=== PATIENT | male | born 1955 | race Caucasian/White ===

== ENCOUNTER 2019-11-14 13:43 | Emergency (ER) | payer BC, MEDICARE, SELFPAY ==
--- NOTE | ~2019-11-14 | CT_ITS ---
EXAMINATION: CT brain wo con DATE: 11/14/2019 15:20 INDICATION: Status post fall from ladder. TECHNIQUE: Computed tomography (CT) of the head was performed without intravenous contrast. The dose- length product was 605.33 mGy-cm. The mA was adjusted according to patient size. Iterative reconstruc tion technique was employed. COMPARISON: None FINDINGS: No acute intracranial hemorrhage, infarction, mass or mass effect. No ventriculomegaly or m idline shift. Basilar cisterns are patent. There is intracranial atherosclerosis. Mild generalized at rophy. There is mucosal thickening of the ethmoid and sphenoid sinuses. Mastoids are pneumatized. No depressed skull fractures. IMPRESSION: 1. No acute intracranial abnormality. 2: Mild sinusitis. Reviewed, dictated and finalized at location A.
--- NOTE | ~2019-11-14 | CT_ITS ---
EXAMINATION: CT abdomen pelvis w con EXAM DATE: 11/14/2019 15:20 INDICATION: Fall from ladder with subsequent flank, back pain. TECHNIQUE: Spiral CT of the abdomen and pelvis was performed following intravenous injection of 100 m L Omnipaque 350. Axial, coronal and sagittal images were reviewed. The dose-length product (DLP) fo r this examination was 730.62 mGy-cm. The exposure was tailored according to patient size (auto mA e xposure control), and iterative reconstruction (ASIR) was used as additional dose reduction technique . There is no prior study for comparison. FINDINGS: There is no solid organ injury. The liver, spleen, adrenal glands and pancreas are unremar kable. Gallbladder is unremarkable. No biliary obstruction. Portal and splenic veins are patent. Kidneys enhance symmetrically. There is no hydronephrosis. The prostate is unremarkable. The blad lon is unremarkable. There is no retroperitoneal or pelvic lymphadenopathy. There is mild scattere d arteriosclerotic disease. The appendix is normal. The stomach and small bowel are unremarkable. There is expected amount of c olonic stool. There is moderate sigmoid predominant colonic diverticulosis. No free intraperitoneal g as. Borderline cardiomegaly. The lung bases are unremarkable. There is acute left 11th and 12th r ib fractures posteriorly. The 9th and 10th ribs were also imaged posteriorly and are intact. Pelvis, vertebral bodies are intact. There is total right hip arthroplasty. IMPRESSION: 1. Acute left 11th and 12th rib fractures posteriorly. 2. Colonic diverticulosis. 3. No acute intra-abdominal findings. Reviewed, dictated and finalized at location A.
[2019-11-14 13:47] VITALS: BP 145/88; PULSE 78; RESP 20; TEMP 36.7; O2SAT 98
--- NOTE | 2019-11-14 13:55 | ED.FALL ---
HPI - Fall General Chief Complaint: Fall Stated Complaint: 12FOOT FALL OFF LADDER L ARM INJURY Time Seen by Provider: 11/14/19 13:47 Source: patient Mode of arrival: ambulatory Limitations: no limitations History of Present Illness HPI Narrative: Patient is a 64-year-old male who presented to the emergency department after a fall from a ladder. Patient was apparently cleaning out his gutters, when he slipped and fell backwards off a ladder, landing on a picnic table. Patient reports left arm pain and a large laceration to the left arm. Patient denies head trauma or loss of consciousness, but states he is not entirely sure if he hit his head. Patient has been ambulatory without vision changes, nausea or vomiting. Patient denies neck pain or lower back pain. No numbness or paresthesias. No saddle anesthesia, urinary incontinence, no seizure-like activity. No chest pain, lightheadedness or dizziness prior to the fall. Patient takes a daily aspirin otherwise no anticoagulation. Pt has been ambulatory. Related Data Home Medications Medication Instructions Recorded Confirmed aspirin [Aspirin Childrens] 81 mg PO DAILY 05/03/19 05/03/19 meloxicam 15 mg PO DAILY 05/03/19 05/03/19 propranolol 80 mg PO Q12H 05/03/19 05/03/19 simvastatin 20 mg PO DAILY 05/03/19 05/03/19 tamsulosin 0.4 mg PO DAILY 05/03/19 05/03/19 Allergies Allergy/AdvReac Type Severity Reaction Status Date / Time Penicillins Allergy Unknown Unknown Verified 11/14/19 13:56 Review of Systems Review of Systems: Narrative: CONSTITUTIONAL: Denies fever, chills, or sweats. EYES: Denies visual changes, redness, or discharge. ENT: Denies rhinorrhea, congestion, sore throat, or otalgia. CARDIOVASCULAR: Denies chest pain, palpitations, or edema. RESPIRATORY: Denies cough or dyspnea. GASTROINTESTINAL: Denies abdominal pain, nausea, vomiting, or diarrhea. GENITOURINARY: Denies dysuria or hematuria. SKIN: Denies rash or itching. Reports left arm laceration. MUSCULOSKELETAL: Denies back pain, joint pain, or myalgia. NEUROLOGIC: Denies headache, numbness, or weakness. [facility] Past Medical History Medical History BPH (benign prostatic hyperplasia) Essential tremor Hypercholesterolemia Hypertension Surgical History Surgical History History of right hip replacement Family History Family History Other Family history of arthritis Family history of cardiovascular disease Hypertension Social History Social History Alcohol intake: current Exam Narrative: Exam Narrative: Nursing note and vitals reviewed. CONSTITUTIONAL: The patient appears well-developed and well-nourished. No distress. HEAD: Normocephalic and atraumatic. EYES: 2+ PERRL, EOMI, normal conjunctiva, anicteric EARS: External ears clear bilaterally, no hemotympanum MOUTH: OP clear, no erythema, exudates NECK: midline trachea, supple, FROM. No midline cervical spinal tenderness. CARDIOVASCULAR: Normal rate, regular rhythm, normal heart sounds and intact distal pulses. No murmurs, rubs, gallops. PULMONARY: Effort normal and breath sounds normal. No respiratory distress. The patient has no wheezes, rales, ronchi. No chest wall tenderness, crepitus or ecchymoses. ABDOMINAL: Soft. Nontender, nondistended. No palpable masses Thorax: No midline thoracic or lumbar tenderness. Left posterior chest tenderness without crepitus. EXTREMITIES:: moving all extremities symmetrically. -RUE: No deformity. Normal ROM at shoulder, elbow, wrist, and hand. Sensation intact M/U/R. Pulse 2+. -LUE: No deformity. Normal ROM at shoulder, elbow, wrist, and hand. Pt with large flap laceration appx 4 cm x 4 cm to left medial upper extremity. No active bleeding. Sensation intact M/U/R. Pulse 2+ -RLE: No deformity. Nor
[2019-11-14] MEDS: LIDO 1%/EPINEPHRINE 1:100,000 20 ML VIAL 10 ML INFILTRATE (14:12)
[2019-11-14 15:17] LABS: Estimated Glomerular Filt Rate > 60
[2019-11-14 16:56] VITALS: BP 140/77; PULSE 80; RESP 20; TEMP 36.7; O2SAT 99
== END 2019-11-14 16:58 | disposition home or self-care (01) ==
PROVIDERS: Emergency Provider Emergency Medicine; PCP Family Medicine Adolescent Medicine
DX: S41.112A Laceration without foreign body of left upper arm, initial encounter (principal); S22.42XA Multiple fractures of ribs, left side, initial encounter for closed fracture; Z79.82 Long term (current) use of aspirin; N40.0 Benign prostatic hyperplasia without lower urinary tract symptoms; E78.00 Pure hypercholesterolemia, unspecified; I10 Essential (primary) hypertension; Z96.641 Presence of right artificial hip joint; J32.9 Chronic sinusitis, unspecified; K57.90 Diverticulosis of intestine, part unspecified, without perforation or abscess without bleeding; W11.XXXA Fall on and from ladder, initial encounter
CPT/HCPCS: 12004; 36415; 70450; 74177; 99284; L0140; Q9967

== ENCOUNTER → 2021-01-01 11:13 | Outpatient (CLI) | payer BC, MEDICARE, SELFPAY ==
--- NOTE | ~2021-01-01 | XR_ITS ---
XR cervical spine 4-5V DATE: 01/01/2021 11:36 INDICATION: Persistent bilateral neck pain TECHNIQUE: Open-mouth, odontoid, AP, lateral standing views COMPARISON: None FINDINGS: There is straightening of the cervical spine. C1 and C2 are normally aligned and the odontoid process is intact. No fracture or dislocation or lock ed facet or prevertebral soft tissue swelling. There is degenerative spurring throughout the cervical spine. There is moderate loss of interspace he ight at C4-5 and moderately severe loss of interspace height at C6-7. Uncovertebral joint spurring is noted in the mid and lower cervical spine. There is degenerative montano ge at the apophyseal joints of the cervical spine. IMPRESSION: Straightening Cervical spondylosis, most pronounced at C4-5 and C6-7 Reviewed, dictated and finalized at location A.
== END ==
PROVIDERS: PCP Family Medicine Adolescent Medicine; Visit Provider Family Medicine Adolescent Medicine
DX: M47.892 Other spondylosis, cervical region (principal)
CPT/HCPCS: 72050

== ENCOUNTER → 2021-06-03 07:01 | Outpatient (CLI) | payer BC, MEDICARE, SELFPAY ==
--- NOTE | ~2021-06-03 | XR_ITS ---
EXAMINATION: XR knee LT min 4V DATE: 06/03/2021 08:01 INDICATION: Left knee pain. TECHNIQUE: 4 views of left knee including standing views were obtained. COMPARISON: Left knee radiograph 02/12/2017 FINDINGS: Bone alignment is normal. No fracture. There is severe osteoarthritis of medial compartment and mild osteoarthritis of lateral and patellofemoral compartments. No knee joint effusion. IMPRESSION: 1. Severe left knee osteoarthritis. Reviewed, dictated and finalized at location A. [employer] COMPONENTS INSPECTOR
--- NOTE | ~2021-06-03 | XR_ITS ---
EXAMINATION: XR hip LT min 2V DATE: 06/03/2021 08:01 INDICATION: Left hip pain. TECHNIQUE: 2 views of left hip were obtained. COMPARISON: CT abdomen and pelvis 11/14/2019 FINDINGS: Bone alignment is normal. No fracture. There is moderate left hip osteoarthritis. Partially visualized is a total right hip arthroplasty. There is moderate lumbar spondylosis. IMPRESSION: 1. Moderate left hip osteoarthritis. Reviewed, dictated and finalized at location A. [employer] REGISTRAR
== END ==
PROVIDERS: PCP Family Medicine Adolescent Medicine; Visit Provider Family Medicine Adolescent Medicine
DX: M17.12 Unilateral primary osteoarthritis, left knee (principal); M16.12 Unilateral primary osteoarthritis, left hip
CPT/HCPCS: 73502; 73564

== ENCOUNTER 2021-07-24 12:32 | Outpatient (CLI) | payer BC, MEDICARE, SELFPAY ==
--- NOTE | ~2021-07-24 | XR_ITS ---
EXAMINATION: XR lg joint inject/asp w image DATE: 07/24/2021 13:39 INDICATION: Left hip arthritis and pain TECHNIQUE: A time-out was performed to verify the patient's name, date of , and procedure to b e performed. The procedure including the risks, benefits, and alternatives was discussed with the pat ient. Risks discussed included bleeding and infection. The patient understood the risks and agreed to proceed. The skin overlying the left hip joint was prepped and draped in usual sterile fashion. An esthetic was administered with 1% lidocaine subcutaneously. A 22 G needle was advanced under fluoros copic guidance into the joint. Injection of 1 mL of Omnipaque 240 confirmed intra-articular position of the needle. Subsequently, injectate consisting of 4 mL of a 1:1 mixture of 0.5% bupivacaine: 40 mg/mL Depo-Medrol for a total dosage of 40 mg Depo-Medrol was instilled. Washout of contrast was seen confirming intra-articular administration. The needle was removed and the entry site was cleaned and dressed. There were no immediate complications. Fluoroscopy exposure time was 0.1 minutes. The tota l number of images was 2. FINDINGS: Real-time fluoroscopy demonstrates the needle in the left hip joint. Patient's pain prior t o procedure:01/27. Patient's pain following the procedure: 07/30. IMPRESSION: 1. Successful left hip joint injection of local anesthetic and steroid with decrease in the patient's presenting pain. Reviewed, dictated and finalized at location A. [employer] IMPRESSION: 1. Successful left hip joint injection of local anesthetic and steroid with dec rease in the patient's presenting pain.
== END 2021-07-24 12:33 | disposition home or self-care (01) ==
PROVIDERS: PCP Family Medicine Adolescent Medicine; Visit Provider Nurse Practitioner Family
DX: M25.552 Pain in left hip (principal)
CPT/HCPCS: 20610; 77002; J1030; Q9966

== ENCOUNTER → 2021-09-21 03:06 | Outpatient (CLI) | payer BC, MEDICARE, SELFPAY ==
[2021-09-21 10:47] LABS: SARS-CoV-2 RNA PCR Negative
== END ==
PROVIDERS: PCP Family Medicine Adolescent Medicine; Visit Provider Internal Medicine Gastroenterology
DX: Z01.812 Encounter for preprocedural laboratory examination (principal); Z20.822 Contact with and (suspected) exposure to COVID-19
CPT/HCPCS: C9803; U0003; U0005

== ENCOUNTER 2021-09-24 01:03 | Day surgery (SDC) | payer BC, MEDICARE, SELFPAY ==
[2021-09-14 13:35] VITALS: BMI 30.4
--- NOTE | 2021-09-23 15:02 | PM.HPGS ---
History of Present Illness History of Present Illness Consent: Risks, benefits, and alternatives have been discussed and questions answered. Patient agrees to proceed with procedure. Chief complaint: diarrhea Narrative: Viet Cardona is a 66 year old male who complains of diarrhea since March. Reports BM every 2-3 hours even at night that are pudding like. The first stool of the morning, he will also pass pink tinged mucous. He denies any obvious blood in the stool. He will have bm 10-15 after eating as well, it is worse with spicy foods such as lasagna and pasta, but tolerates meats ok. States he has been given medications from Dr. Morfin but never took any off them because of the side effects, some where antibiotics. For the past month, he has had to wear a diaper. He drinks 10-12 beers a day for 40-50 years. He denies any hx of pancreatitis or liver issues. He denies any abdominal pain, fever, Nausea, vomiting, black stools. He has lost 10 pounds since this started, contributes this to decreased eating 2/2 diarrhea. No new medications or recent antibiotic use. No recent travel, no sick contacts. No family hx of CRC/IBD. Review of Systems Review of Systems: All systems reviewed & are unremarkable except as noted in HPI and below PMFSH Past Medical History Medical History Arthritis BPH (benign prostatic hyperplasia) Diarrhea Essential tremor Hypercholesterolemia Hypertension Left knee DJD Wears glasses Surgical History Surgical History History of right hip replacement History of right knee surgery Family History Family History Other Family history of arthritis Family history of cardiovascular disease Hypertension Social History Social History Years smoked: 45 Smoking status: Current every day smoker Tobacco type: smokeless tobacco Smokeless tobacco user: chewing tobacco Additional smoking assessment comments: 1 can per day Alcohol intake: current Drinks per week: 84 Alcohol use details: 12 beers per day for 50 years Living arrangements: with family Spiritual care concerns: No Meds Home Medications and Allergies Home Medications Medication Instructions Recorded Confirmed Type propranolol 80 mg PO DAILY 05/03/19 09/14/21 History simvastatin 20 mg PO DAILY 05/03/19 09/14/21 History tamsulosin 0.4 mg PO DAILY 05/03/19 09/14/21 History meloxicam 15 mg tablet 15 mg PO DAILY 08/28/21 09/14/21 History sildenafil 100 mg PO DAILY PRN 09/14/21 09/14/21 History Allergies Allergy/AdvReac Type Severity Reaction Status Date / Time Penicillins Allergy Unknown Unknown Verified 09/24/21 08:12 Exam Const: General: alert Orientation/consciousness: patient oriented x3 Resp: Auscultation: clear to auscultation bilaterally Cardio: Rhythm: regular rhythm GI: GI Palp: Yes Soft to palpation and No Tenderness to palpation present (GI) Neuro: General: patient oriented x3 Assessment and Plan Assessment and plan (1) Chronic diarrhea: Code(s): K52.9 - Noninfective gastroenteritis and colitis, unspecified Status: Acute Assessment and Plan: Colonoscopy with possible biopsy or polypectomy or cautery or injection of substances.
[2021-09-24 08:14] VITALS: BP 155/81; PULSE 71; RESP 18; TEMP 36.6; O2SAT 98
[2021-09-24] MEDS: LACTATED RINGERS 1,000 ML 150 ML IV CONT (08:27)
--- NOTE | 2021-09-24 08:46 | WPDANESEPPF ---
Anes - Initial Pre Proc Eval Procedure: Operation Date: 09/24/21 09:00 Proposed Procedures p Colonoscopy - Daurte Calixto MD Date/Time: 09/24/21 08:46 Surgeon: Duarte Calixto MD Pre Op Diagnosis: diarrhea Patient Data Age: 66 Gender: M Height: 1.73 m Weight: 84.3 kg Last Vital Signs Temp 97.8 F 09/24/21 08:14 Pulse 71 09/24/21 08:14 Resp 18 09/24/21 08:14 BP 155/81 H 09/24/21 08:14 Pulse Ox 98 09/24/21 08:14 Allergies Allergy/AdvReac Type Severity Reaction Status Date / Time Penicillins Allergy Unknown Unknown Verified 09/24/21 08:12 Home Medications Medication Instructions Recorded Confirmed Type propranolol 80 mg PO DAILY 05/03/19 09/14/21 History simvastatin 20 mg PO DAILY 05/03/19 09/14/21 History tamsulosin 0.4 mg PO DAILY 05/03/19 09/14/21 History meloxicam 15 mg tablet 15 mg PO DAILY 08/28/21 09/14/21 History sildenafil 100 mg PO DAILY PRN 09/14/21 09/14/21 History Patient hx anesthesia problems: none Family hx anesthesia problems: none Results Review: All pre-operative results and documents have been reviewed as part of the pre-operative evaluation. [facility] Past Medical History Medical History Arthritis BPH (benign prostatic hyperplasia) Diarrhea Essential tremor Hypercholesterolemia Hypertension Left knee DJD Wears glasses Surgical History Surgical History History of right hip replacement History of right knee surgery Family History Family History Other Family history of arthritis Family history of cardiovascular disease Hypertension Social History Social History Years smoked: 45 Smoking status: Current every day smoker Tobacco type: smokeless tobacco Smokeless tobacco user: chewing tobacco Additional smoking assessment comments: 1 can per day Alcohol intake: current Drinks per week: 84 Alcohol use details: 12 beers per day for 50 years Living arrangements: with family Spiritual care concerns: No Anes - Eval Final PreProcedure Day of Procedure 09/24/21 08:46 Patient weight: overweight Heart: regular rate and rhythm Lungs: clear to auscultation Airway: Mallampati scale class II Neurological: alert and oriented Last oral intake: >/= 8 hours ASA classification: III Emergent: no Anesthetic plan: proceed Anesthesia type and monitoring: general GIVS and standard monitoring Results Review: All pre-operative results and documents have been reviewed as part of the pre-operative evaluation. Informed Consent: The patient's anesthetic plan and its attendant risks and benefits were discussed with the patient/family/POA. Questions were solicited and answers provided to the satisfaction of the patient/family/POA.
--- NOTE | 2021-09-24 09:04 | SUR.OPER ---
Dr. Calixto stated he could not move the scope past the rectal mass, so he changed the procedure to a sigmiodoscopy.
[2021-09-24 09:09] VITALS: BP 94/47; PULSE 69; RESP 20; O2SAT 97
[2021-09-24 09:19] VITALS: BP 96/50; PULSE 68; RESP 17; O2SAT 98
[2021-09-24 09:29] VITALS: BP 104/62; PULSE 63; RESP 22; O2SAT 96
== END 2021-09-24 09:45 | disposition home or self-care (01) ==
PROVIDERS: PCP Family Medicine Adolescent Medicine; Visit Provider Internal Medicine Gastroenterology
PROC: 0DJD8ZZ Inspection of Lower Intestinal Tract, Via Natural or Artificial Opening Endoscopic (ICD-10-PCS; CPT 45378; principal; 2021-09-24 09:00)
DX: Z12.11 Encounter for screening for malignant neoplasm of colon (principal); C20 Malignant neoplasm of rectum; R19.7 Diarrhea, unspecified; K64.8 Other hemorrhoids; I10 Essential (primary) hypertension; E78.00 Pure hypercholesterolemia, unspecified; N40.0 Benign prostatic hyperplasia without lower urinary tract symptoms; G25.0 Essential tremor; F17.220 Nicotine dependence, chewing tobacco, uncomplicated
CPT/HCPCS: 45380; 88305; C9803; J2704; J7120; U0003; U0005

== ENCOUNTER 2022-11-19 10:17 | Outpatient (CLI) | payer BC, MEDICARE, SELFPAY ==
--- NOTE | ~2022-11-19 | XR_ITS ---
EXAMINATION: XR lg joint inject/asp w image DATE: 11/19/2022 11:15 INDICATION: Left hip arthritis. TECHNIQUE: A time-out was performed to verify the patient's name, date of , and procedure to b e performed. The procedure including the risks, benefits, and alternatives was discussed with the pat ient. Risks discussed included bleeding and infection. The patient understood the risks and agreed to proceed. The skin overlying the left hip joint was prepped and draped in usual sterile fashion. An esthetic was administered with 1% lidocaine subcutaneously. A 22 G needle was advanced under fluoros copic guidance into the joint. Subsequently, injectate consisting of 2 mL 0.5% bupivacaine and 1 mL 80 mg/mL Depo-Medrol was instilled. The needle was removed and the entry site was cleaned and dresse d. There were no immediate complications. Fluoroscopy exposure time was 0.1 minutes. The total numbe r of images was 1. FINDINGS: Real-time fluoroscopy demonstrates the needle in the left hip joint. Patient's pain prior t o procedure:03/29. Patient's pain following the procedure: 08/27. IMPRESSION: 1. Fluoroscopy guided left hip joint injection of local anesthetic and steroid with decrease in the p atient's presenting pain. Reviewed, dictated and finalized at location A. IMPRESSION: 1. Fluoroscopy guided left hip joint injection of local anesthetic and steroid with decrease in the patient's presenting pain.
== END 2022-11-19 10:18 | disposition home or self-care (01) ==
PROVIDERS: PCP Family Medicine Adolescent Medicine; Visit Provider Orthopaedic Surgery
DX: M16.12 Unilateral primary osteoarthritis, left hip (principal)
CPT/HCPCS: 20610; 77002; J1040